=== PATIENT | female | born 1995 | race Caucasian/White ===

== ENCOUNTER 2023-07-30 11:59 | Emergency (ER) | payer BC, MEDICAID ==
[2023-07-30] MEDS ORDERED: HYDROmorphone 0.5 MG/0.5 ML Syringe IVPUSH ONE (12:37)
[2023-07-30] MEDS ORDERED: predniSONE 20 MG Tab PO ONE (14:46)
== END 2023-07-30 16:00 ==
LOC: JD.ED 11:59
DX: M54.6 Pain in thoracic spine (principal); M54.2 Cervicalgia; R20.2 Paresthesia of skin; G83.21 Monoplegia of upper limb affecting right dominant side
CPT/HCPCS: 70450; 72125; 72128; 96374; 96375; 99285; J1170; J3360; 99284